=== PATIENT | male | born 1980 | race Hispanic/Latino ===

== ENCOUNTER 2023-09-20 19:35 | Emergency (ER) | payer SELFPAY, OTHER ==
[2023-09-20] MEDS ORDERED: Fluorescein Opthalmic Strip ONE (19:51)
[2023-09-20] MEDS ORDERED: Proparacaine 0.5% Opth 15 ML BOT ONE (19:51)
[2023-09-20] MEDS ORDERED: CEFAZOLIN 1 GM VIAL ONE (20:10)
[2023-09-20] MEDS ORDERED: Sodium Chloride 0.9% 100 ML ONE (20:10)
[2023-09-20] MEDS ORDERED: Boostrix 0.5 ML (Tdap) VIAL (>/=7 yrs of age) ONE (20:10)
[2023-09-20 20:33] LABS: #Eosinphils 0.3 thou/uL (0.0-0.7); #Monocytes 0.6 thou/uL (0.11-0.59); #Neutrophils 4.8 thou/uL (1.40-6.50); %Basophils 0.3 % (0.0-1.0); %Eosinophils 3.9 % (0.0-10.0); %Lymphocytes 32.7 % (21.0-51.0); %Monocytes 6.9 % (0.0-10.0); %Neutrophils 55.7 % (42.0-75.0); Hematocrit 42.7 % (42.0-52.0); Mean Corpuscular HGB CONC 35.1 g/dL (32.0-36.0); Mean Corpuscular Hemoglobin 31.7 pg (27.0-31.0); Mean Corpuscular Volume 90.3 fl (78.0-98.0); Platelet Count 218 10x3/uL (130-400); RBC Distribution Width 12.6 % (11.5-14.5); Red Blood Cell (RBC) Count 4.73 mill/uL (4.70-6.10); White Blood Cell (WBC) Count 8.7 10x3/uL (4.8-10.8)
[2023-09-20 20:50] LABS: ALT (SGPT) 46 U/L (8-55); AST (SGOT) 33 U/L (5-34); Albumin 4.5 g/dL (3.5-5.0); Alkaline Phosphatase 94 U/L (40-110); Anion Gap 10 mmol/L (10-20); BUN (Urea Nitrogen) 15 mg/dL (8.9-20.6); Bilirubin, Total 0.9 mg/dL (0.2-1.2); Calc. Creatinine Clearance 0 mL/min (70-130); Calcium 9.7 mg/dL (7.8-10.44); Carbon Dioxide 23 mmol/L (22-29); Chloride 108 mmol/L (98-107); Estimated GFR 114; Globulin 3.2 g/dL (2.4-3.5); Glucose 112 mg/dL (70-105); Protein, Total 7.7 g/dL (6.0-8.3); Sodium 137 mmol/L (136-145)
[2023-09-20] MEDS ORDERED: Erythromycin Base 0.5% Oint 1 GM TUBE ONE (21:40)
== END 2023-09-20 21:53 | disposition home or self-care (01) ==
LOC: ERS 19:35
DX: S01.112A Laceration without foreign body of left eyelid and periocular area, initial encounter (principal); S05.02XA Injury of conjunctiva and corneal abrasion without foreign body, left eye, initial encounter; S09.90XA Unspecified injury of head, initial encounter; F17.210 Nicotine dependence, cigarettes, uncomplicated; V89.2XXA Person injured in unspecified motor-vehicle accident, traffic, initial encounter; Z23 Encounter for immunization
CPT/HCPCS: 36415; 70450; 70486; 71045; 72125; 80053; 85025; 90471; 90715; 96365; J0690; J3490